=== PATIENT | female | born 1945 | race Caucasian/White ===

== ENCOUNTER 2017-05-01 08:27 | Day surgery (SDC) | payer MEDICARE ==
[2017-05-01] VITALS (7 sets, daily range): BP systolic 108–144; BP diastolic 58–86; PULSE 53–73; RESP 14–16; O2SAT 93–98
[~2017-05-01] VITALS: Ht 160 cm; Wt 60.8 kg
[~2017-05-01 08:27] MED LIST: 0.9% Sodium Chloride 1,000 ML IV SCH; ALBU18HF INH; ASPI-973 PO; CALC600T12 PO; CHOL10008 PO; LORA10CA PO; LOSA50TA37 PO; MELA1TAB9 PO; MULT-1018 PO; Sodium Chloride LOK Flush 10 mL Syringe IV PRN; fentaNYL-PF 50 mCg/mL 2 mL Inj IVPUSH PRN
--- NOTE | 2017-05-01 11:54 | ENDO ---
[address] [address] ENDOSCOPY PROCEDURE PATIENT: KEVIN HAIR : 1945 MR#: [id number] ADMIT: 05/01/2017 JOB ID: [id number] PRIMARY PROVIDER: Binta Cummins DO PROCEDURE: Esophagogastroduodenoscopy with biopsy and a colonoscopy with random biopsies and cold snare and cold forceps polypectomies. INDICATIONS: A 71-year-old female with early satiety. She also has a history of a tendency towards loose stool and has a personal history of adenomatous colon polyps. EQUIPMENT: 1. GIF H 180 J. 2. PCF H 180 AL. SEDATION: Versed 7 mg and 125 mcg fentanyl. COMPLICATIONS: None identified. BOWEL PREPARATION: Fair, adequate exam. PROCEDURE INFORMATION: After the risks and benefits were explained, written and verbal informed consent was obtained. The patient was brought into the endoscopy suite and placed into the left lateral decubitus position. Sedation was achieved as above (2 of the 7 mg given with respect to the Versed were given out in the preprocedure day as the patient had severe anxiety about her procedure). The scope was introduced into the mouth through the bite block and advanced to the second portion of the duodenum. The scope was slowly withdrawn to carefully examine the mucosa for any defects or lesions. Retroflexed views were accomplished in the stomach, the stomach was decompressed, and the scope removed the patient, who demonstrated suboptimal tolerance of the exam. The patient was then turned around and a digital rectal examination accomplished. Mild internal hemorrhoids were noted. The scope was introduced into the rectum and advanced to the cecum as identified by the appendiceal orifice and ileocecal valve. The terminal ileum was accessed and the scope then slowly withdrawn to carefully examine the mucosa for any defects or lesions. Multiple direct views were made through the dentate line for exclusion of pathology. The colon was decompressed and the scope removed from the patient, who tolerated the procedure well. FINDINGS: 1. Duodenum: No pathology identified from the bulb through to the second portion. Random biopsies were taken from D2 for exclusion of sprue. 2. Stomach: Minimal gastropathy was seen throughout. No ulcers. No outlet obstruction. No mass lesions. Random biopsy was taken for exclusion of Helicobacter or other pathology. Retroflexed views of the LES were unremarkable. 3. Esophagus: The squamocolumnar junction correlated with the top of the gastric folds. The GEJ was at about 37 cm from the incisors. The patient had evidence of LA grade B ulcerative esophagitis. The remainder of the esophagus appeared unremarkable. 4. Terminal ileum: This appeared visually normal. 5. Colon: No macroscopic colitis throughout. Random colon biopsies were taken for exclusion of microscopic disease. In the ascending colon there were two diminutive polyps removed with cold forceps and a 3rd diminutive 5 mm polyp removed with cold snare. The patient had some very mild diverticula in the left colon. ENDOSCOPIC DIAGNOSES: 1. LA grade B ulcerative esophagitis. 2. Mild gastropathy. 3. Colon polyps. 4. Diverticulosis. 5. Hemorrhoids. RECOMMENDATIONS: 1. Await histopathology. 2. The patient is encouraged to trial a course of omeprazole. 3. Repeat colonoscopy in three years. 4. Repeat EGD in about six weeks to ensure complete mucosal healing on omeprazole. I would recommend anesthesia for this exam in that the patient was quite intolerant today.
--- NOTE | 2017-05-02 15:05 | PATH ---
SURGICAL PATHOLOGY Attending Physician:Mary Ann Irizarry CASE STATUS: Signed Out PATIENT NAME: KEVIN HAIR PID: [id number] : 1945 DATE COLLECTED:05/01/2017 21:39 SPECIMEN: 1: Duodenum, Biopsy 2: Gastric, Biopsy 3: Colon, Polyp 4: Colon, Biopsy CLINICAL HISTORY: 1). DUODENAL BIOPSY 2). GASTRIC BIOPSY 3). ASCENDING COLON POLYPS X3- 1 NOT RETRIEVED 4). RANDOM COLON BIOPSY FINAL DIAGNOSIS: 1. Duodenal Biopsy: Duodenal mucosa with no diagnostic abnormality. Negative for active inflammation, dysplasia, and malignancy. 2. Gastric Biopsy: Portion of gastric body-type mucosa with mild chronic gastritis. No H. pylori organisms identified by H&E stain. Immunohistochemistry studies pending; results will be reported as an addendum. Negative for intestinal metaplasia, dysplasia and malignancy. 3. Ascending Colon Polyps, Biopsies: Portions of tubular adenoma x3; negative for high-grade dysplasia. 4. Random Colon Biopsy: Colorectal mucosa with no diagnostic abnormality. Negative for active inflammation, granulomas, dysplasia, and malignancy. ICD10: K63.5 GROSS DESCRIPTION: Received are four formalin-filled containers, each labeled with the patient' s name. 1. Received in formalin, labeled with the patient' s name and "duodenal BX", is one fragment of loza, soft tissue measuring 0.2 x 0.2 x 0.1 cm. The fragment is totally submitted in cassette 1A. 2. Received in formalin, labeled with the patient' s name and "gastric BX", is one fragment of loza, soft tissue measuring 0.2 x 0.2 x 0.2 cm. The fragment is totally submitted in cassette 2A. 3. Received in formalin, labeled with the patient' s name and "ascending colon polyps", are two fragments of loza, soft tissue ranging in size from 0.2 x 0.2 x 0.1 cm to 0.2 x 0.2 x 0.2 cm. All fragments are totally submitted in cassette 3A. 4. Received in formalin, labeled with the patient' s name and "random colon BX", is one fragment of loza, soft tissue measuring 0.1 x 0.1 x 0.1 cm. The fragment is totally submitted in cassette 4A. ([id number]) ICD-9 CODES: CPT CODES: 1: 43448 2: 57952, 28896 3: 87012 4: 95091 PROCEDURE/ADDENDA: Immunohistochemistry SPI Interpretation 2. Gastric biopsy: - Negative for Helicobacter pylori by immunohistochemical stains. Results-Comments Part 2. Immunohistochemical stains are performed to further evaluate for the presence of Helicobacter organisms. The patient tissue is stained with monoclonal antibody to Helicobacter pylori (SP48). Positive and negative controls stain appropriately. Result: The patient tissue shows no staining. Interpretation: The gastric mucosa is negative for Helicobacter pylori by immunohistochemical stains. This test was developed and its performance characteristics determined by [facility]. It has not been cleared or approved by the [place]. Food and Drug Administration. The FDA has determined that such clearance or approval is not necessary. This test is used for clinical purposes. It should not be regarded as investigational or for research. Electronically Signed Out Ruby Anne MD Electronically Signed Out Ruby Anne MD [facility] [address], [place] [address] Technical component performed at [facility] [address], [place], [address]
== END 2017-05-01 23:59 | disposition home or self-care (01) ==
LOC: END 08:27
PROVIDERS: ATTEND Internal Medicine Gastroenterology
DX: D12.2 Benign neoplasm of ascending colon (principal); K57.30 Diverticulosis of large intestine without perforation or abscess without bleeding; K64.8 Other hemorrhoids; K29.50 Unspecified chronic gastritis without bleeding; K22.10 Ulcer of esophagus without bleeding; R19.4 Change in bowel habit; R68.81 Early satiety; Z79.899 Other long term (current) drug therapy; Z79.82 Long term (current) use of aspirin; Z88.0 Allergy status to penicillin; Z88.8 Allergy status to other drugs, medicaments and biological substances; Z88.7 Allergy status to serum and vaccine; Z87.891 Personal history of nicotine dependence
CPT/HCPCS: 43239; 45380; 45385; 99153; G0500; J2250; J3010; J7030